=== PATIENT | female | born 1950 | race Caucasian/White ===

== ENCOUNTER 2018-09-13 09:44 | Day surgery (SDC) | payer OTHER ==
[2018-09-13] VITALS (10 sets, daily range): BP systolic 102–143; BP diastolic 59–77; PULSE 16–81; RESP 16–22; Ht 160 cm; Wt 104.6 kg
[~2018-09-13] VITALS: Ht 160 cm; Wt 104.6 kg
[~2018-09-13 09:44] MED LIST: PROPOFOL 200 MG INJ ONE
[2018-09-13] MEDS ORDERED: METO-335 PO (10:27)
[2018-09-13] MEDS ORDERED: METH10TA5 PO (10:27)
[2018-09-13] MEDS ORDERED: FURO-110 PO (10:27)
[2018-09-13] MEDS ORDERED: GLIP10TA14 PO (10:27)
[2018-09-13] MEDS ORDERED: ATOR40TA68 PO (10:27)
[2018-09-13] MEDS ORDERED: MTF1000T PO (10:27)
[2018-09-13] MEDS ORDERED: FER325 PO (10:27)
[2018-09-13] MEDS ORDERED: BENA40TA56 PO (10:27)
[2018-09-13] MEDS ORDERED: POTA-57 PO (10:27)
--- NOTE | 2018-09-13 11:08 | PREAC ---
Date/Time of Note Date/Time of Note DATE: 09/13/18 TIME: 11:06 Anesthesia Eval and Record Evaluation Time Pre-Procedure Interview DATE: 09/13/18 TIME: 11:06 Age 68 Sex female NPO: 8 hrs Preoperative diagnosis A FIB Planned procedure CARDIOVERSION Past Medical History Past Medical History: Includes Cardio: HTN, Dyslipidemia, Arrythmia (A FIB) Endo: Diabetes GI: Morbid obesity Surgery & Anesthesia Issues No known issue Meds Anticoagulation: No Beta Lenore within 24 hr: No Reason Beta Lenore not given: Pt. not on B-Lenore Reported Medications Atorvastatin* (Atorvastatin*) 40 Mg Tablet, 40 MG PO QHS, #30 TAB 09/13/18 Metoprolol Succinate* (Toprol XL*) 25 Mg Tab.sr.24h, 25 MG PO DAILY, #30 TAB 09/13/18 Benazepril Hcl* (Benazepril Hcl*) 40 Mg Tablet, 40 MG PO DAILY, #30 TAB 09/13/18 Glipizide* (Glipizide*) 10 Mg Tablet, 10 MG PO BID, TAB 09/13/18 Methimazole* (Methimazole*) 10 Mg Tablet, 10 MG PO DAILY, TAB 09/13/18 Ferrous Sulfate* (Ferrous Sulfate*) 325 Mg Tabec, 325 MG PO DAILY, TAB 09/13/18 Furosemide* (Lasix*) 20 Mg Tablet, 20 MG PO DAILY, TAB 09/13/18 Potassium Chloride* (Klor-Con*) 20 Meq Tabsr, 10 MEQ PO DAILY, TAB.SA 09/13/18 Metformin* (Glucophage*) 1,000 Mg Tablet, 1000 MG PO WITH BREAKFAST DINNE, #30 TAB 09/13/18 Meds reviewed: Yes Allergies Coded Allergies: No Known Allergy (Unverified , 09/13/18) Allergies Reviewed: Yes Labs/Studies Labs Reviewed: Reviewed by anesthesiologist test: N/A Studies: ECG (A FIB) Pre-procedure Exam Last vitals Vital Signs Date Temp Pulse Resp B/P (MAP) Pulse Ox O2 O2 Flow FiO2 Time Delivery Rate 09/13/18 96.4 81 16 136/70 96 Room Air 10:34 (92) Airway: Adequate mouth opening, Adequate thyromental dist Mallampati: Mallampati III Teeth: Normal Lung: Normal Heart: Normal ASA Physical Status ASA physical status: 3 Emergency: None Planned Anesthetic General/MAC: MAC Planned Pain Management Parenteral pain med Pre-operative Attestations Prior to commencing anesthesia and surgery, the patient was re-evaluated, there was verification of: *The patient's identity *The results of appropriate recent lab work and preoperative vital signs *The above evaluation not changing prior to induction *Anesthetic plan, risk benefits, alternative and complications discussed with patient/family; questions answered; patient/family understands, accepts and wishes to proceed. Brandin Noonan M.D. Sep 13, 2018 11:08
[2018-09-13] MEDS ORDERED: LIDOCAINE 100 MG SYRINGE ONE (11:09)
[2018-09-13] MEDS ORDERED: APIX5TAB PO (11:10)
[2018-09-13] MEDS ORDERED: PROPOFOL 40 ML ONE (11:10)
--- NOTE | 2018-09-13 11:12 | PDOCDIS ---
Discharge Instructions CONDITION [id number] Patient Condition: [id number] Good HOME CARE INSTRUCTIONS: [id number] Diet Instructions: [id number] Low Fat /Cholesterol ACTIVITY: [id number] Activity Restrictions: [id number] Do not Drive (x 1 day) FOLLOW UP/APPOINTMENTS Follow-up Plan follow up with cardiology Continue eliquis 5mg twice a day for at least 1 month Sly Roman DO Sep 13, 2018 11:11
--- NOTE | 2018-09-13 11:14 | OPR ---
Date/Time of Note Date/Time of Note DATE: 09/13/18 TIME: 11:12 Operative Report Procedure Date: Sep 13, 2018 Preoperative Diagnosis Atrial fib Postoperative Diagnosis Successful CV Operation/Procedure Performed Direct Cardioversion Surgeon see signature line Manager [facility] None Anesthesia Type: MAC Estimated Blood Loss: none Transfusion none Specimen none Grafts/Implants none Complications none Pt Condition Post Procedure: stable Procedure Description After informed consent, patient sedated. Direct CV performed with 200J, successful. No immediate complications. Sly Roman DO Sep 13, 2018 11:14
--- NOTE | 2018-09-13 11:29 | PAC ---
Date/Time of Note Date/Time of Note DATE: 09/13/18 TIME: 11:29 Post-Anesthesia Notes Post-Anesthesia Note Last documented vital signs Vital Signs Date Temp Pulse Resp B/P (MAP) Pulse Ox O2 O2 Flow FiO2 Time Delivery Rate 09/13/18 96.4 81 16 136/70 96 Room Air 10:34 (92) Activity: WNL Respiratory function: WNL Cardiovascular function: WNL Mental status: Baseline Pain reasonably controlled: Yes Hydration appropriate: Yes Nausea/Vomiting absent: Yes Brandin Noonan M.D. Sep 13, 2018 11:29
[2018-09-13] MEDS ORDERED: DIPHENHYDRAMINE 50 MG INJ IV PRN (11:30)
[2018-09-13] MEDS ORDERED: MEPERIDINE 25 MG INJ IV PRN (11:30)
[2018-09-13] MEDS ORDERED: FENTAnyl 50 MCG/ML VIAL IV PRN ×3 (11:30)
[2018-09-13] MEDS ORDERED: MIDAZOLAM 1 MG/ML 2 ML INJ IV PRN (11:30)
[2018-09-13] MEDS ORDERED: OXYCODONE/ACETAMINOPHEN (5/325) TAB PO PRN ×2 (11:30)
[2018-09-13] MEDS ORDERED: HYDROmorphONE 1 MG/5 ML IV SYRINGE IV PRN ×3 (11:30)
[2018-09-13] MEDS ORDERED: TRIMETHOBENZAMIDE 100 MG/ML VIAL IM PRN (11:30)
[2018-09-13] MEDS ORDERED: hydrALAzine 20 MG INJ IV PRN (11:30)
[2018-09-13] MEDS ORDERED: EPHEDrine SULFATE 50 MG/5 ML SYG IV PRN (11:30)
[2018-09-13] MEDS ORDERED: APIXABAN 5 MG TABLET PO ONE (11:30)
[2018-09-13] MEDS ORDERED: ALBUTEROL 0.083% (NEB) 2.5 MG/3 ML AMP HHN PRN (11:30)
[2018-09-13] MEDS ORDERED: LABETALOL HCL 20MG INJ IV PRN (11:30)
[2018-09-13] MEDS ORDERED: ONDANSETRON 4 MG INJ IV PRN (11:30)
[2018-09-13] MEDS ORDERED: IPRATROPIUM (NEB) 0.5 MG/2.5 ML AMP HHN PRN (11:30)
--- NOTE | 2018-09-13 14:13 | RADRPT ---
Vent Rate: 69 bpm RR Interval: 0 msec CO Interval: 188 msec QRS Duration: 82 msec QT Interval: 436 msec QTC Interval: 467 msec P-R-T [place]: 41 - 78 - 55 degrees Normal sinus rhythm Possible Left atrial enlargement Borderline ECG Electronically Signed By: Sly Roman
--- NOTE | 2018-09-13 14:13 | RADRPT ---
Vent Rate: 86 bpm RR Interval: 0 msec ME Interval: 0 msec QRS Duration: 74 msec QT Interval: 386 msec QTC Interval: 461 msec P-R-T [place]: 0 - 83 - 70 degrees Atrial fibrillation Abnormal ECG Electronically Signed By: Sly Roman
== END 2018-09-13 12:30 | disposition home or self-care (01) ==
LOC: SDS 09:44 → CCL 09:44
PROVIDERS: ATTEND Internal Medicine Cardiovascular Disease
DX: I48.91 Unspecified atrial fibrillation (principal); I10 Essential (primary) hypertension; E11.9 Type 2 diabetes mellitus without complications
CPT/HCPCS: 82962; 92960; 93005; J2001; Z7610